=== PATIENT | female | born 1950 | race Caucasian/White ===

== ENCOUNTER 2019-01-16 14:00 | Outpatient (CLI) | payer OTHER ==
--- NOTE | 2019-01-16 15:54 | CT ---
CT CHEST WITH CONTRAST: HISTORY: Dyspnea. COMPARISON: Radiograph 01/13/2019 and 02/13/2016. FINDINGS: There is mild background central lobular emphysema. There is reticular-like band of what appears to be some scar in the right upper lobe along the anterior segment right upper lobe bronchi. This band- like area of scar measures approximately 3.1 x 4.5 x 4.5 cm. There are some adjacent centrilobular o pacities within the right middle lobe and right upper lobe. There is mild bronchial wall thickening in both upper and lower lobes. A few tree-in-bud opacity centrilobular nodules within the lingula as well as the anterior segment right lower lobe. A few centrilobular ground-glass opacities are prese nt in both lower lobes. The thyroid is unremarkable. There are small mediastinal lymph nodes on the right hilum subcarinal r egion. No pericardial effusion. The upper abdomen is unremarkable. No acute osseous abnormality. No thoracic spine compression fracture. IMPRESSION: Imaging appearance of what appears to be a focal area of confluent scarring in the right upper lobe w ith multifocal centrilobular nodules concerning for atypical infectious process such as tuberculosis. Evaluation with bronchoscopy is recommended. If this does not turntable engineer to be diagnostic, a PET CT would be recommended in 1-2 months to evaluate for malignancy. POS: HOME
== END 2019-01-16 14:01 | disposition home or self-care (01) ==
LOC: BICCT 14:00
PROVIDERS: ATTEND Nurse Practitioner Family
DX: R06.00 Dyspnea, unspecified (principal); R91.8 Other nonspecific abnormal finding of lung field; J98.4 Other disorders of lung
CPT/HCPCS: 71260; 82565